=== PATIENT | female | born 1980 | race Caucasian/White ===

== ENCOUNTER → 2016-11-09 | Outpatient (CLI) | payer BC, OTHER | LOC: EMI 11-03 13:45 | DX: R25.2 Cramp and spasm (principal); M79.7 Fibromyalgia; R26.89 Other abnormalities of gait and mobility; M51.27 Other intervertebral disc displacement, lumbosacral region; M99.73 Connective tissue and disc stenosis of intervertebral foramina of lumbar region | CPT/HCPCS: 70553; 72148; A9577; J7050 ==